=== PATIENT | male | born 1960 | race Caucasian/White ===

== ENCOUNTER 2017-06-17 07:58 | Inpatient (IN) | payer OTHER ==
[~2017-06-17] VITALS: Ht 177.8 cm; Wt 98.4 kg
[~2017-06-17 07:58] MED LIST: ATOR20TA; ATOR40TA78 PO; BACITRACIN 50,000 UNIT ONE; BACITRACIN OINT 500U/GM, 15 GM ONE; BUPIVACAINE/PF-EPI 0.5% 1:200K ONE; CYCL5TAB PO; DIAZ5TAB PO; FLEC100T PO; GABA300C PO; HYDR-3240 PO; HYDR2TAB29 PO; METH4TAB2 PO; METH750T87 PO; OXYC-229 PO; THROMBIN 20,000 UNIT VIAL TP ONE
[2017-06-17 15:06] VITALS: BP 142/88
[2017-06-17] MEDS ORDERED: LACTATED RINGERS 1,000 ML IV SCH (15:10)
[2017-06-17] MEDS ORDERED: MIDAZOLAM 1 MG/ML, 2ML IV PRN (16:30)
[2017-06-17] MEDS ORDERED: EPHEDRINE 50 MG/ML, 1ML IVPush PRN (16:30)
[2017-06-17] MEDS ORDERED: LABETALOL 5MG/ML, 20ML IV PRN ×2 (16:30→23:30)
[2017-06-17] MEDS ORDERED: ACETAMINOPHEN 325 MG TABLET PO PRN (16:30)
[2017-06-17] MEDS ORDERED: hydrALAzine 20 MG/ML, 1ML IV PRN (16:30)
[2017-06-17] MEDS ORDERED: PROMETHAZINE 25 MG/ML, 1ML IV PRN (16:30)
[2017-06-17] MEDS ORDERED: HYDROcodone/APAP 7.5-325MG/15ML UDC PO PRN (16:30)
[2017-06-17] MEDS ORDERED: MEPERIDINE/PF 25MG/0.5ML IVPush PRN (16:30)
[2017-06-17] MEDS ORDERED: ONDANSETRON 2MG/ML, 2ML IVPush PRN (16:30)
[2017-06-17] MEDS ORDERED: OXYcodone 5 MG/5 ML ORAL.SOL UDC PO PRN (16:30)
[2017-06-17] MEDS ORDERED: FENTANYL PF 250 MCG/5ML ONE (18:02)
[2017-06-17] MEDS ORDERED: MIDAZOLAM 1 MG/ML, 2ML ONE (18:02)
[2017-06-17] MEDS ORDERED: REMIFENTANIL 1 MG ONE (18:46)
[2017-06-17] MEDS ORDERED: REMIFENTANIL 2 MG ONE (18:47)
[2017-06-17] MEDS ORDERED: DEXAMETHASONE 4 MG/ML, 1ML ONE (18:56)
[2017-06-17] MEDS ORDERED: EPHEDRINE 50 MG/ML, 1ML ONE (18:56)
[2017-06-17] MEDS ORDERED: PHENYLEPHRINE 10 MG/ML ONE (18:56)
[2017-06-17] MEDS ORDERED: PROPOFOL 10 MG/ML, 50ML ONE (18:56)
[2017-06-17] MEDS ORDERED: PROPOFOL 10 MG/ML, 20ML ONE (18:56)
[2017-06-17] MEDS ORDERED: ONDANSETRON 2MG/ML, 2ML ONE (18:56)
[2017-06-17] MEDS ORDERED: SUCCINYLCHOLINE 20 MG/ML, 10ML ONE (18:56)
[2017-06-17] MEDS ORDERED: CEFAZOLIN 1,000 MG ONE (18:56)
[2017-06-17] MEDS ORDERED: THROMBIN 20,000 UNIT VIAL TP ONE (19:22)
[2017-06-17] MEDS ORDERED: BACITRACIN 50,000 UNIT IRRIG ONE (19:23)
[2017-06-17] MEDS ORDERED: BUPIVACAINE/PF-EPI 0.5% 1:200K IM ONE (19:36)
[2017-06-17] MEDS ORDERED: ZOLPIDEM 5MG TABLET PO PRN (21:00)
[2017-06-17] MEDS ORDERED: HYDROmorphone 2 MG/ML, 1ML ONE (21:47)
[2017-06-17] MEDS ORDERED: ACETAMINOPHEN 650 MG/20.3 ML UDC ONE (21:47)
[2017-06-17] MEDS ORDERED: FENTANYL PF 100 MCG/2ML ONE (21:47)
[2017-06-17] MEDS ORDERED: OXYcodone 5 MG/5 ML ORAL.SOL UDC ONE (21:48)
[2017-06-17] MEDS: FENTANYL PF 100 MCG/2ML IV PRN ×2 (22:10→22:21)
[2017-06-17] MEDS: HYDROmorphone 1 MG/ML, 1ML IV PRN ×2 (22:26→22:32)
[2017-06-17] MEDS ORDERED: HYDROcodone/APAP 5/325 TABLET PO PRN (23:30)
[2017-06-17] MEDS ORDERED: BISACODYL 10 MG SUPP PR PRN (23:30)
[2017-06-17] MEDS ORDERED: PHARMACY MAY ADJ FOR RENAL FX MC PRN (23:30)
[2017-06-17] MEDS ORDERED: MAGNESIUM HYDROXIDE 8%, 30ML UDC PO PRN (23:30)
[2017-06-17] MEDS ORDERED: PROMETHAZINE 25 MG/ML, 1ML IM PRN (23:30)
[2017-06-17] MEDS ORDERED: ONDANSETRON 2MG/ML, 2ML IV PRN (23:30)
[2017-06-17] MEDS ORDERED: METHOCARBAMOL 1,000 MG in DEXTROSE 5% 100 ML IV ONE (23:30)
[2017-06-17] MEDS ORDERED: ATORVASTATIN MC SCH (23:30)
[2017-06-18] MEDS: FLECAINIDE 100MG TABLET PO SCH ×3 (00:53→20:25)
[2017-06-18] MEDS: morphine SULFATE 10 MG/ML, 1ML IV PRN ×2 (00:53→01:18)
[2017-06-18 01:02] VITALS: BP 139/81
[2017-06-18] MEDS: NS + 20MEQ KCL 1,000 ML IV SCH ×3 (01:07→23:36)
[2017-06-18] MEDS: OXYcodone/APAP 10/325MG TABLET PO PRN ×3 (02:22→20:25)
[2017-06-18] MEDS ORDERED: LABETALOL 5MG/ML, 20ML IV PRN (03:30)
[2017-06-18] MEDS: CEFAZOLIN PMX 1GM/50ML 50 ML IVPB SCH ×2 (03:56→11:28)
[2017-06-18 06:35] VITALS: BP 149/89
[2017-06-18 07:15] VITALS: BP 121/75
[2017-06-18] MEDS: METHOCARBAMOL 750 MG in DEXTROSE 5% 100 ML IV SCH ×2 (09:31→16:50)
[2017-06-18] MEDS: SENNA/DOCUSATE TABLET PO SCH ×2 (09:31→20:25)
[2017-06-18 13:44] VITALS: BP 120/71
[2017-06-18 18:50] VITALS: BP 105/65
[2017-06-18] MEDS ORDERED: ATORVASTATIN 40 MG TABLET PO SCH (21:00)
[2017-06-19] MEDS: METHOCARBAMOL 750 MG in DEXTROSE 5% 100 ML IV SCH ×2 (01:03→09:33)
[2017-06-19 01:48] VITALS: BP 96/55
[2017-06-19] MEDS: OXYcodone/APAP 10/325MG TABLET PO PRN ×2 (06:30→10:30)
[2017-06-19 08:30] VITALS: BP 97/60
[2017-06-19] MEDS: SENNA/DOCUSATE TABLET PO SCH (08:59)
[2017-06-19] MEDS: FLECAINIDE 100MG TABLET PO SCH (09:00)
[2017-06-19] MEDS ORDERED: SERTRALINE 50MG TABLET PO SCH (10:12)
[2017-06-19] MEDS ORDERED: SERT50TA PO (11:16)
[2017-06-19] MEDS ORDERED: SENN1TAB7 PO (11:17)
[2017-06-19] MEDS ORDERED: CALC200T3 PO (11:18)
[2017-06-19] MEDS ORDERED: CHOL100018 PO (11:18)
[2017-06-19] MEDS ORDERED: OXYC-229 PO (11:19)
[2017-06-19] MEDS ORDERED: METH750T87 PO (11:19)
[2017-06-20] MEDS ORDERED: METHOCARBAMOL 750 MG TABLET PO SCH (07:30)
== END 2017-06-19 11:52 | disposition home or self-care (01) | DRG 460 ==
LOC: ORIP 14:40 → 4NOR 22:53
PROVIDERS: ADMIT Neurological Surgery; ATTEND Neurological Surgery
PROC: 0SG3071 Fusion of Lumbosacral Joint with Autologous Tissue Substitute, Posterior Approach, Posterior Column, Open Approach (ICD-10-PCS; 2017-06-17)
PROC: 0SB40ZZ Excision of Lumbosacral Disc, Open Approach (ICD-10-PCS; 2017-06-17)
PROC: 01NB0ZZ Release Lumbar Nerve, Open Approach (ICD-10-PCS; 2017-06-17)
PROC: 01NR0ZZ Release Sacral Nerve, Open Approach (ICD-10-PCS; 2017-06-17)
PROC: 4A11X4G Monitoring of Peripheral Nervous Electrical Activity, Intraoperative, External Approach (ICD-10-PCS; 2017-06-17)
PROC: 0SG30AJ Fusion of Lumbosacral Joint with Interbody Fusion Device, Posterior Approach, Anterior Column, Open Approach (ICD-10-PCS; principal; 2017-06-17 16:30)
DX: M51.16 Intervertebral disc disorders with radiculopathy, lumbar region (principal); I48.91 Unspecified atrial fibrillation; E78.5 Hyperlipidemia, unspecified; M48.06 Spinal stenosis, lumbar region
CPT/HCPCS: 36415; 72100; 86850; 86900; C1713; C1767; J0690; J1100; J1170; J2250; J2405; J2704; J3010; J3480; C1762; J0330; J2270; J2370; J2800; J7120

== ENCOUNTER → 2017-07-22 | Outpatient (CLI) | payer OTHER ==
[~2017-07-22] MED LIST changes: -BACITRACIN 50,000 UNIT ONE; -BACITRACIN OINT 500U/GM, 15 GM ONE; -BUPIVACAINE/PF-EPI 0.5% 1:200K ONE; +CALC200T3 PO; +CHOL100012 PO; -OXYC-229 PO; +OXYC-307 PO; +SENN1TAB7 PO; +SERT50TA PO; -THROMBIN 20,000 UNIT VIAL TP ONE
== END | disposition home or self-care (01) ==
LOC: RAD 09:00
PROVIDERS: ATTEND Neurological Surgery
DX: M48.06 Spinal stenosis, lumbar region (principal); M54.16 Radiculopathy, lumbar region; M25.78 Osteophyte, vertebrae; Z98.1 Arthrodesis status; Z98.890 Other specified postprocedural states
CPT/HCPCS: 72110

== ENCOUNTER → 2017-07-22 | Outpatient (CLI) | payer OTHER ==
[2017-07-22 09:29] LABS: ASPARTATE AMINO TRANSFERASE 18 U/L (15-37); BLOOD UREA NITROGEN 14 mg/dL (7-18)
== END | disposition home or self-care (01) ==
LOC: LAB 09:08
PROVIDERS: ATTEND Internal Medicine Cardiovascular Disease
DX: E78.2 Mixed hyperlipidemia (principal); I10 Essential (primary) hypertension
CPT/HCPCS: 36415; 80053; 80061

== ENCOUNTER → 2018-05-25 | Outpatient (CLI) | payer OTHER | END | disposition home or self-care (01) | LOC: RAD 11:10 | PROVIDERS: ATTEND Neurological Surgery | DX: M50.30 Other cervical disc degeneration, unspecified cervical region (principal); M54.5 Low back pain | CPT/HCPCS: 72050; 72110 ==

== ENCOUNTER → 2018-10-21 | Outpatient (CLI) | payer OTHER ==
[~2018-10-21] MED LIST changes: -SENN1TAB7 PO; +SENN1TAB8 PO
[2018-10-21 07:36] LABS: ALBUMIN 4.4 g/dL (3.4-5.0); ANION GAP 9 mmol/L (5-15); CALCIUM 8.6 mg/dL (8.5-10.1); CHLORIDE 106 mmol/L (98-107)
[2018-10-21 07:40] LABS: ALANINE AMINOTRANSFERASE 43 U/L (12-78); ALKALINE PHOSPHATASE 66 U/L (45-117); BILIRUBIN,TOTAL 0.8 mg/dL (0.2-1.0); CHOL/HDL RATIO 3.8; CHOLESTEROL, TOTAL 177 mg/dL (140-239); CREATININE 0.96 mg/dL (0.7-1.3); HDL CHOL % 26 % (26-37); HDL CHOLESTEROL (DIRECT) 46 mg/dL (40-60); LDL CHOLESTEROL,CALCULATED 107 mg/dL (54-169); LDL/HDL RATIO 2.3 (0.5-3.0); TRIGLYCERIDES 120 mg/dL (50-200); VLDL CHOLESTEROL 24 mg/dL (0-25)
== END | disposition home or self-care (01) ==
LOC: LAB 07:08
PROVIDERS: ATTEND Internal Medicine Cardiovascular Disease
DX: I48.0 Paroxysmal atrial fibrillation (principal); I47.1 Supraventricular tachycardia; E78.2 Mixed hyperlipidemia
CPT/HCPCS: 36415; 80053; 80061

== ENCOUNTER 2019-06-21 07:00 | Outpatient (CLI) | payer OTHER | END 2019-06-21 23:59 | disposition home or self-care (01) | LOC: LAB 07:00 | PROVIDERS: ATTEND Internal Medicine Cardiovascular Disease | DX: J01.90 Acute sinusitis, unspecified (principal); E78.2 Mixed hyperlipidemia; I10 Essential (primary) hypertension; I47.1 Supraventricular tachycardia; I48.0 Paroxysmal atrial fibrillation | CPT/HCPCS: 36415; 80053; 80061 ==

== ENCOUNTER → 2019-12-12 | Outpatient (CLI) | payer OTHER ==
[~2019-12-12] MED LIST changes: +SENN-177 PO; -SENN1TAB8 PO
[2019-12-12 07:57] LABS: ALANINE AMINOTRANSFERASE 40 U/L (12-78); ALBUMIN 4.3 g/dL (3.4-5.0); ANION GAP 5 mmol/L (5-15); CALCIUM 9.1 mg/dL (8.5-10.1); CHLORIDE 108 mmol/L (98-107); CHOLESTEROL, TOTAL 139 mg/dL (140-239); CREATININE 1.03 mg/dL (0.7-1.3)
[2019-12-12 07:59] LABS: ALKALINE PHOSPHATASE 65 U/L (45-117); BILIRUBIN,TOTAL 0.8 mg/dL (0.2-1.0); CHOL/HDL RATIO 3.2; HDL CHOL % 31 % (26-37); HDL CHOLESTEROL (DIRECT) 43 mg/dL (40-60); LDL CHOLESTEROL,CALCULATED 80 mg/dL (54-169); LDL/HDL RATIO 1.9 (0.5-3.0); TOTAL PROTEIN 7.4 g/dL (6.4-8.2); TRIGLYCERIDES 81 mg/dL (50-200); VLDL CHOLESTEROL 16 mg/dL (0-25)
== END | disposition home or self-care (01) ==
LOC: LAB 07:34
PROVIDERS: ATTEND Nurse Practitioner Family
DX: I10 Essential (primary) hypertension (principal); E78.2 Mixed hyperlipidemia; I48.0 Paroxysmal atrial fibrillation
CPT/HCPCS: 36415; 80053; 80061

== ENCOUNTER → 2021-01-22 | Outpatient (CLI) | payer OTHER ==
[~2021-01-22] MED LIST changes: +HYDR-1067 PO; -HYDR-3240 PO; -OXYC-307 PO; +OXYC-380 PO
[2021-01-22 12:29] LABS: ALANINE AMINOTRANSFERASE 30 U/L (12-78); ALBUMIN 4.3 g/dL (3.4-5.0); ANION GAP 7 mmol/L (5-15); CALCIUM 8.7 mg/dL (8.5-10.1); CHLORIDE 108 mmol/L (98-107); CHOLESTEROL, TOTAL 159 mg/dL (140-239); CREATININE 1.01 mg/dL (0.7-1.3); TRIGLYCERIDES 99 mg/dL (50-200); VLDL CHOLESTEROL 20 mg/dL (0-25)
[2021-01-22 12:32] LABS: ALKALINE PHOSPHATASE 71 U/L (45-117); BILIRUBIN,TOTAL 0.8 mg/dL (0.2-1.0); CHOL/HDL RATIO 3.7; HDL CHOL % 27 % (26-37); HDL CHOLESTEROL (DIRECT) 43 mg/dL (40-60); LDL CHOLESTEROL,CALCULATED 96 mg/dL (54-169); LDL/HDL RATIO 2.2 (0.5-3.0); TOTAL PROTEIN 7.2 g/dL (6.4-8.2)
== END | disposition home or self-care (01) ==
LOC: LAB 12:01
PROVIDERS: ATTEND Internal Medicine Cardiovascular Disease
DX: E78.2 Mixed hyperlipidemia (principal); I10 Essential (primary) hypertension; I47.1 Supraventricular tachycardia; I48.0 Paroxysmal atrial fibrillation; I48.91 Unspecified atrial fibrillation
CPT/HCPCS: 36415; 80053; 80061

== ENCOUNTER 2021-07-10 14:58 | Inpatient (IN) | payer OTHER ==
[~2021-07-10] VITALS: Ht 177.8 cm; Wt 93.4 kg
[~2021-07-10 14:58] MED LIST changes: -HYDR-1067 PO; +HYDR-2214 PO
--- NOTE | 2021-07-10 15:36 | NUR ---
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 UA COLLECTED AND SENT TO LAB.
--- NOTE | 2021-07-10 15:59 | NUR ---
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
[2021-07-10 16:00] LABS: MICROSCOPIC INDICATED
[2021-07-10 16:05] LABS: BASOPHILS % (AUTO) 1 % (0-1); EOSINOPHILS % (AUTO) 0 % (1-7); LYMPHOCYTES % (AUTO) 30 % (22-44); MEAN CORPUSCULAR HEMOGLOBIN 31.6 pg (27.5-34.5); MEAN CORPUSCULAR HGB CONC 34.7 g/dL (33.2-36.2); MEAN PLATELET VOLUME 9.5 fL (7.4-10.4); MONOCYTES % (AUTO) 12 % (2-9); NEUTROPHILS % (AUTO) 57 % (42-75); PLATELET COUNT 126 x10^3/uL (130-400); RED BLOOD COUNT 5.41 x10^6/uL (4.38-5.82); RED CELL DISTRIBUTION WIDTH 13.5 % (9.4-14.8)
--- NOTE | 2021-07-10 16:06 | NUR ---
PATIENT WALKED BACK FROM [facility] WITH CHIEF C/O COUGH, DIARRHEA, AND CHEST PAIN X10 DAYS. PATIENT TESTED POSITIVE FOR COVID 07/03/2021. PER PATIENT SYMPTOMS HAVE GOTTEN WORSE. NADN, CONNECTED TO MONITOR, VSS, SPOUSE AT BEDSIDE, CALL LIGHT WITHIN REACH.
[2021-07-10 16:14] LABS: ALANINE AMINOTRANSFERASE 39 U/L (12-78); ANION GAP 6 mmol/L (5-15); CHLORIDE 99 mmol/L (98-107); CREATININE 1.15 mg/dL (0.7-1.3)
[2021-07-10 16:17] LABS: ALKALINE PHOSPHATASE 77 U/L (45-117); BILIRUBIN,TOTAL 0.8 mg/dL (0.2-1.0); TOTAL PROTEIN 7.9 g/dL (6.4-8.2)
[2021-07-10] MEDS ORDERED: ONDANSETRON 2MG/ML, 2ML IVPush ONE (16:30)
[2021-07-10] MEDS ORDERED: SODIUM CHLORIDE FLUSH 10ML SYR IVF ONE (16:30)
[2021-07-10] MEDS ORDERED: SODIUM CHLORIDE 0.9% 1,000ML IVBOLUS ONE (16:30)
[2021-07-10] MEDS ORDERED: MORPHINE SULFATE 4 MG/ML, 1ML ONE ×2 (16:40→18:09)
[2021-07-10] MEDS ORDERED: ONDANSETRON 2MG/ML, 2ML ONE (16:40)
[2021-07-10] MEDS: MORPHINE SULFATE 4 MG/ML, 1ML IVPush PRN ×2 (16:46→18:12)
[2021-07-10] MEDS ORDERED: CASIRIVIMAB 600 MG, IMDEVIMAB (REGN10987) 600 MG in SODIUM CHLORIDE 0.9% 250 ML IVPB ONE (17:00)
[2021-07-10] MEDS ORDERED: FILTER 0.22 MICRON IV ONE (17:00)
--- NOTE | 2021-07-10 17:15 | NUR ---
LATE ENTRY DUE TO PATIENT CARE: [facility]IR[facility]IM[facility] INFUSION STARTED, PATIENT GIVEN EDUCATIONAL PACKET, ALL QUESTIONS ANSWERED, CONNECTED TO MONITOR, VSS, CALL LIGHT WITHIN REACH.
--- NOTE | 2021-07-10 18:06 | NUR ---
CASIRIVMAB INFUSION FINISHED, PATIENT TOLERATED WELL, VSS, CALL LIGHT WITHIN REACH.
--- NOTE | 2021-07-10 18:15 | NUR ---
PATIENT C/O 8/10 RIGHT LEG PAIN, MEDICATED WITH SECOND DOSE OF MORPHINE. CONNECTED TO MONITOR, VSS, AT BEDSIDE.
--- NOTE | 2021-07-10 18:52 | NUR ---
REPORT TO MARINA MURRY FOR TRANSFER OF CARE.
--- NOTE | 2021-07-10 18:52 | NUR ---
Report from Han GRAY
[2021-07-10] MEDS ORDERED: SODIUM CHLORIDE FLUSH 10ML SYR IVF PRN (20:00)
[2021-07-10] MEDS ORDERED: ACETAMINOPHEN 325 MG TABLET PO PRN (21:30)
[2021-07-10] MEDS ORDERED: DOCUSATE 100 MG CAPSULE PO PRN (21:30)
[2021-07-10] MEDS ORDERED: ONDANSETRON 2MG/ML, 2ML IVPush PRN (21:30)
[2021-07-10] MEDS ORDERED: PHARMACY MAY ADJ FOR RENAL FX MC PRN (21:30)
[2021-07-10] MEDS ORDERED: LIDODERM 5% PATCH TD PRN (21:30)
[2021-07-10] MEDS: ASCORBIC ACID 500 MG TABLET PO SCH (21:30)
[2021-07-10] MEDS ORDERED: ENOXAPARIN 40 MG/0.4 ML SQ SCH (21:30)
[2021-07-10] MEDS ORDERED: ACETAMINOPHEN 325 MG TABLET ONE (22:01)
--- NOTE | 2021-07-10 22:22 | NUR ---
Report to Loretta GRAY
[2021-07-10 22:52] VITALS: BP 103/69
[2021-07-10] MEDS ORDERED: ASCORBIC ACID 250 MG TAB ONE (23:04)
[2021-07-10] MEDS: DEXAMETHASONE 4 MG/ML, 1ML IVPush SCH (23:11)
[2021-07-10] MEDS: MELATONIN 5 MG TABLET PO SCH (23:12)
[2021-07-10] MEDS ORDERED: CEFTRIAXONE 1,000 MG in DEXTROSE 5% 50 ML IVPB SCH (23:30)
[2021-07-10] MEDS ORDERED: AZITHROMYCIN 500 MG in SODIUM CHLORIDE 0.9% 250 ML IV SCH (23:30)
[2021-07-11 00:12] LABS: INTERNATIONAL NORMALIZED RATIO 1.04 (0.93-1.1); PROTHROMBIN TIME 11.1 Seconds (9.6-11.5)
[2021-07-11 00:21] VITALS: BP 103/69
[2021-07-11] MEDS: DOXYCYCLINE 100 MG in DEXTROSE 5% 250 ML IV SCH ×2 (02:04→15:03)
[2021-07-11 02:08] VITALS: BP 104/69
[2021-07-11 02:53] LABS: RAPID INFLUENZA A Negative (Negative); RAPID INFLUENZA B Negative (Negative)
[2021-07-11] MEDS: CEFTRIAXONE 2 GM in DEXTROSE 5% 50 ML IVPB SCH (06:27)
[2021-07-11 06:40] LABS: BASOPHILS % (AUTO) 0 % (0-1); EOSINOPHILS % (AUTO) 0 % (1-7); LYMPHOCYTES % (AUTO) 17 % (22-44); MEAN CORPUSCULAR HGB CONC 35.3 g/dL (33.2-36.2); MEAN PLATELET VOLUME 9.7 fL (7.4-10.4); MONOCYTES % (AUTO) 5 % (2-9); NEUTROPHILS % (AUTO) 79 % (42-75); PLATELET COUNT 112 x10^3/uL (130-400); RED BLOOD COUNT 5.16 x10^6/uL (4.38-5.82); RED CELL DISTRIBUTION WIDTH 13.8 % (9.4-14.8)
[2021-07-11 06:43] LABS: HCT (SEDRATE) 46.8 % (39.2-51.8)
[2021-07-11 06:51] LABS: ALBUMIN 3.6 g/dL (3.4-5.0); ANION GAP 6 mmol/L (5-15); CALCIUM 8.8 mg/dL (8.5-10.1); CHLORIDE 104 mmol/L (98-107); CREATININE 1.07 mg/dL (0.7-1.3)
[2021-07-11 06:59] LABS: ALANINE AMINOTRANSFERASE 33 U/L (12-78); ALKALINE PHOSPHATASE 69 U/L (45-117); BILIRUBIN,TOTAL 0.7 mg/dL (0.2-1.0); CREATINE KINASE, TOTAL 167 U/L (39-308); TOTAL PROTEIN 7.3 g/dL (6.4-8.2)
[2021-07-11 08:18] VITALS: BP 124/85
[2021-07-11] MEDS: ENOXAPARIN 40 MG/0.4 ML SQ SCH ×2 (08:45→20:08)
[2021-07-11] MEDS: CHOLECALCIFEROL 5,000u TAB PO SCH (08:45)
[2021-07-11] MEDS: ZINC SULFATE 220 MG CAPSULE PO SCH (08:45)
[2021-07-11] MEDS: ASCORBIC ACID 500 MG TABLET PO SCH ×2 (08:45→20:08)
[2021-07-11] MEDS ORDERED: REMDESIVIR 200 MG in SODIUM CHLORIDE 0.9% 250 ML IVPB ONE (09:00)
[2021-07-11] MEDS: DEXAMETHASONE 4 MG/ML, 1ML IVPush SCH (11:22)
[2021-07-11] MEDS ORDERED: METHOCARBAMOL 750 MG TABLET PO PRN (11:30)
[2021-07-11 12:38] VITALS: BP 133/89
[2021-07-11] MEDS: MELATONIN 5 MG TABLET PO SCH (20:08)
[2021-07-11 20:11] VITALS: BP 124/82
[2021-07-11] MEDS ORDERED: ATORVASTATIN 40 MG TABLET PO SCH (21:00)
[2021-07-12 00:05] VITALS: BP 102/67
[2021-07-12] MEDS ORDERED: DIAZ5TAB4 PO (01:02)
[2021-07-12] MEDS ORDERED: DIAZEPAM 5 MG TABLET PO PRN (01:30)
[2021-07-12] MEDS ORDERED: DOXYCYCLINE 100 MG in DEXTROSE 5% 250 ML IV SCH (03:00)
[2021-07-12] MEDS: CEFTRIAXONE 2 GM in DEXTROSE 5% 50 ML IVPB SCH (06:06)
[2021-07-12 06:40] LABS: HCT (SEDRATE) 44.8 % (39.2-51.8)
[2021-07-12 06:46] LABS: BASOPHILS % (AUTO) 0 % (0-1); EOSINOPHILS % (AUTO) 0 % (1-7); LYMPHOCYTES % (AUTO) 18 % (22-44); MEAN CORPUSCULAR HEMOGLOBIN 31.6 pg (27.5-34.5); MEAN CORPUSCULAR HGB CONC 34.7 g/dL (33.2-36.2); MEAN PLATELET VOLUME 10.3 fL (7.4-10.4); MONOCYTES % (AUTO) 9 % (2-9); NEUTROPHILS % (AUTO) 73 % (42-75); PLATELET COUNT 123 x10^3/uL (130-400); RED BLOOD COUNT 4.86 x10^6/uL (4.38-5.82); RED CELL DISTRIBUTION WIDTH 13.5 % (9.4-14.8)
[2021-07-12 06:53] LABS: ALBUMIN 3.1 g/dL (3.4-5.0); ANION GAP 6 mmol/L (5-15); CALCIUM 8.5 mg/dL (8.5-10.1); CHLORIDE 104 mmol/L (98-107)
[2021-07-12 06:56] LABS: ALANINE AMINOTRANSFERASE 32 U/L (12-78); ALKALINE PHOSPHATASE 59 U/L (45-117); BILIRUBIN,TOTAL 0.5 mg/dL (0.2-1.0); CREATINE KINASE, TOTAL 157 U/L (39-308); CREATININE 0.89 mg/dL (0.7-1.3); TOTAL PROTEIN 6.6 g/dL (6.4-8.2)
[2021-07-12] MEDS ORDERED: REMDESIVIR 100 MG in SODIUM CHLORIDE 0.9% 250 ML IVPB SCH (09:00)
[2021-07-12] MEDS ORDERED: SERTRALINE 50MG TABLET PO SCH (09:00)
[2021-07-12 09:12] VITALS: BP 123/84
[2021-07-12] MEDS: CHOLECALCIFEROL 5,000u TAB PO SCH (09:21)
[2021-07-12] MEDS: ZINC SULFATE 220 MG CAPSULE PO SCH (09:21)
[2021-07-12] MEDS: ASCORBIC ACID 500 MG TABLET PO SCH (09:21)
[2021-07-12] MEDS: ENOXAPARIN 40 MG/0.4 ML SQ SCH (09:22)
[2021-07-12] MEDS: DEXAMETHASONE 4 MG/ML, 1ML IVPush SCH (09:22)
[2021-07-12] MEDS ORDERED: CEFD300C37 PO (12:41)
[2021-07-12] MEDS ORDERED: DEXA6TAB6 PO (12:41)
== END 2021-07-12 14:54 | disposition home or self-care (01) | DRG 177 ==
LOC: ED 19:45 → EDIP 19:54 → ED 21:04 → 3N 22:40
PROVIDERS: ADMIT Internal Medicine; ATTEND Hospitalist
PROC: XW033E5 Introduction of Remdesivir Anti-infective into Peripheral Vein, Percutaneous Approach, New Technology Group 5 (ICD-10-PCS; principal; 2021-07-11)
DX: U07.1 COVID-19 (principal); J12.82 Pneumonia due to coronavirus disease 2019; J96.01 Acute respiratory failure with hypoxia; D69.6 Thrombocytopenia, unspecified; E78.5 Hyperlipidemia, unspecified; F32.9 Major depressive disorder, single episode, unspecified; I10 Essential (primary) hypertension; I48.0 Paroxysmal atrial fibrillation; K21.9 Gastro-esophageal reflux disease without esophagitis; Z86.72 Personal history of thrombophlebitis
CPT/HCPCS: 36415; 71045; 80053; 81001; 82550; 82728; 83605; 83615; 83690; 84145; 85025; 85379; 85384; 85610; 85651; 85730; 86140; 87400; 93005; 96361; 96374; 99285; G0378; J0696; J1100; J1650; J2405; J7060; J2270; J7030; J7050